=== PATIENT | male | born 1995 | race African-American/Black ===

== ENCOUNTER 2018-04-06 01:09 | Emergency (ER) | payer OTHER ==
[~2018-04-06] VITALS: Ht 185.4 cm; Wt 98.0 kg
[2018-04-06] MEDS ORDERED: SILV1CRE20 TOPICAL (03:29)
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
[2018-04-06 03:38] VITALS: BP 133/78; PULSE 88; RESP 16; TEMP 98.7; O2SAT 99
== END 2018-04-06 04:08 | disposition home or self-care (01) ==
LOC: NEPC 01:09 → EDBD 01:09 → NEPC 04:08
DX: T22.232A Burn of second degree of left upper arm, initial encounter (principal); V49.9XXA Car occupant (driver) (passenger) injured in unspecified traffic accident, initial encounter; Y92.410 Unspecified street and highway as the place of occurrence of the external cause
CPT/HCPCS: 16020